=== PATIENT | male | born 1940 ===

== ENCOUNTER → 2022-03-18 13:48 | Outpatient (CLI) | payer MEDICARE, OTHER, SELFPAY ==
[2022-03-18 14:45] LABS: COVID19 -Nasal RAPID Negative (Negative)
--- NOTE | 2022-03-18 18:56 | DI.NM.S_ITS ---
DATE OF SERVICE: 03/18/2022 PROCEDURE PERFORMED: Exercise stress test. INDICATION: Exertional shortness of breath. CARDIAC STRESS: The patient underwent exercise stress test under the supervision of an attending staff using standard protocol. The patient walked on [place] protocol for 7 minutes and 41 seconds, achieved maximum heart rate of 144, which was 106 percent of target heart rate. Baseline blood pressure 124/78 mmHg. Peak blood pressure 160/82 mmHg. 10.1 METs of workload. JONATAN -56 percent. No anginal symptoms. The patient felt fatigue and shortness of breath. Baseline rhythm sinus with repolarization changes. During stress, no convincing ischemic changes seen. There was some nonspecific upsloping ST depression. Occasional PACs. No complex arrhythmias seen. Oxygen saturation 96 percent. CONCLUSION: Exercise stress test is negative for inducible ischemia. Excellent exercise tolerance. Functional aerobic impairment -56 percent. Normal hemodynamic response. No chest pain. No complex arrhythmias. Overall, low- risk exercise stress test. Gray Mejía - Hammad/rema doc#: [id number]/job#: [id number] dd: 03/18/2022 18:18:00 dt: 03/18/2022 18:39:00 DICTATING /COPIES TO: Violeta Beck MD COPIES MNE: DAV;
== END ==
PROVIDERS: Referring Provider Nurse Practitioner Family; Visit Provider Nurse Practitioner Family
DX: R06.09 Other forms of dyspnea (principal); Z20.822 Contact with and (suspected) exposure to COVID-19; R06.02 Shortness of breath
CPT/HCPCS: 87635; 93017